=== PATIENT | male | born 1950 | race Caucasian/White ===

== ENCOUNTER → 2017-11-16 07:57 | Outpatient (CLI) | payer OTHER, MEDICARE, SELFPAY ==
--- NOTE | 2017-11-16 08:06 | CDU_ITS ---
Reason For Study: CAROTID STENOSIS Rt. Velocities/BP Lt. Velocities/BP Prox CCA 116.0/13.5 cm/sec. Prox CCA 138.0/18.1 cm/sec. Mid CCA 89.7/11.7 cm/sec. Mid CCA 113.0/15.2 cm/sec. Dist CCA 90.3/12.9 cm/sec. Dist CCA 93.2/18.8 cm/sec. Prox ICA 73.9/13.5 cm/sec. Prox ICA 134.0/27.5 cm/sec. Mid ICA 58.1/13.8 cm/sec. Mid ICA 94.4/24.2 cm/sec. Dist ICA 77.0/25.9 cm/sec. Dist ICA 83.0/21.1 cm/sec. Rt. ICA/CCA = 77.0/89.7=0.9. Lt. ICA/CCA = 134.0/113.0=1.2. Prox ECA 176.0/11.8 cm/sec. Prox ECA 164.0/12.6 cm/sec. Rt. Vert. 58.1/9.82 cm/sec. Lt. Vert. 65.6/18.9 cm/sec. Right Extracranial There is homogeneous, smooth atherosclerotic plaque noted in the right common carotid artery. There is homogeneous, smooth atherosclerotic plaque noted in the right internal carotid artery. There is intimal thickening but no significant atherosclerotic plaque noted in the right external carotid artery. Antegrade flow is noted in the right vertebral artery. Left Extracranial There is intimal thickening but no significant atherosclerotic plaque noted in the left common carotid artery. There is heterogeneous, irregular atherosclerotic plaque noted in the left internal carotid artery. There is intimal thickening but no significant atherosclerotic plaque noted in the left external carotid artery. Antegrade flow is noted in the left vertebral artery. There is heterogeneous, irregular atherosclerotic plaque noted in the left bulb. Procedure Carotid Duplex [id number]. The exam was diagnostic. Exam performed in department. Interpretation Summary Mild (<50%) stenosis right extracranial internal carotid. Moderate (50-69%) stenosis left extracranial internal carotid. Flow within the vertebral arteries is antegrade bilaterally. Ordering Physician: Vel Borjas Referring Physician: Chris Montez Performed By: Mayra Blount RDCS, RVT
== END ==
PROVIDERS: Family Provider Family Medicine; PCP Family Medicine; Visit Provider Surgery Vascular Surgery
DX: I65.23 Occlusion and stenosis of bilateral carotid arteries (principal); E11.59 Type 2 diabetes mellitus with other circulatory complications; I10 Essential (primary) hypertension; E78.00 Pure hypercholesterolemia, unspecified; I25.2 Old myocardial infarction; Z87.891 Personal history of nicotine dependence
CPT/HCPCS: 93880

== ENCOUNTER → 2019-10-30 08:00 | Outpatient (CLI) | payer OTHER, MEDICARE, SELFPAY ==
--- NOTE | 2019-10-30 08:03 | CDU_ITS ---
Reason For Study: Carotid stenosis Rt. Velocities/BP Lt. Velocities/BP Prox CCA 141.2/17 cm/sec. Prox CCA 119.3/18.8 cm/sec. Mid CCA 79/12.6 cm/sec. Mid CCA 98.6/13.9 cm/sec. Dist CCA 72.8/9 cm/sec. Dist CCA 101.1/18.8 cm/sec. Prox ICA 117/13.8 cm/sec. Prox ICA 149.9/27 cm/sec. Mid ICA 60.8/15.7 cm/sec. Mid ICA 80.2/24.9 cm/sec. Dist ICA 80.6/20.1 cm/sec. Dist ICA 79/24.9 cm/sec. Rt. ICA/CCA = 1.5. Lt. ICA/CCA = 1.5. Prox ECA 154.3 cm/sec. Prox ECA 200.2/6 cm/sec. Rt. Vert. 52/10.2 cm/sec. Lt. Vert. 55.3/11.3 cm/sec. Right Extracranial There is homogeneous, smooth atherosclerotic plaque noted in the right common carotid artery. There is homogeneous, smooth atherosclerotic plaque noted in the right internal carotid artery. There is intimal thickening but no significant atherosclerotic plaque noted in the right external carotid artery. Antegrade flow is noted in the right vertebral artery. Left Extracranial There is heterogeneous, irregular atherosclerotic plaque noted in the left common carotid artery. There is heterogeneous, irregular atherosclerotic plaque noted in the left internal carotid artery. There is heterogeneous, irregular atherosclerotic plaque noted in the left external carotid artery. Antegrade flow is noted in the left vertebral artery. Procedure Carotid Duplex [id number]. Exam performed in department. Interpretation Summary Mild (<50%) stenosis right extracranial internal carotid. Moderate (50-69%) stenosis left extracranial internal carotid. Flow within the vertebral arteries is antegrade bilaterally. Ordering Physician: Vel Borjas Referring Physician: Chris Montez Performed By: Lizbeth Long RVT
== END ==
PROVIDERS: PCP Family Medicine; Referring Provider Surgery Vascular Surgery; Visit Provider Surgery Vascular Surgery
DX: I65.23 Occlusion and stenosis of bilateral carotid arteries (principal)
CPT/HCPCS: 93880

== ENCOUNTER → 2022-01-12 | Outpatient (CLI) | payer OTHER, MEDICARE, SELFPAY ==
--- NOTE | 2022-01-12 10:47 | CDU_ITS ---
Reason For Study: CAROTID STENOSIS Rt. Velocities/BP Lt. Velocities/BP Prox CCA 107.3/16.0 cm/sec. Prox CCA 120.4/18.1 cm/sec. Mid CCA 81.6/13.8 cm/sec. Mid CCA 100.3/16.3 cm/sec. Dist CCA 82.9/13.8 cm/sec. Dist CCA 72.3/10.9 cm/sec. Prox ICA 95.7/12.2 cm/sec. Prox ICA 119.8/17.5 cm/sec. Mid ICA 56.4/19.5 cm/sec. Mid ICA 90.4/19.2 cm/sec. Dist ICA 73.6/22.0 cm/sec. Dist ICA 80.6/22.8 cm/sec. Rt. ICA/CCA = 95.7/81.6=1.2. Lt. ICA/CCA = 119.8/100.3=1.2. Prox ECA 128.9/0.0 cm/sec. Prox ECA 138.1/15.7 cm/sec. Rt. Vert. 47.8/8.5 cm/sec. Lt. Vert. 57.2/13.0 cm/sec. Right Extracranial There is homogeneous, smooth atherosclerotic plaque noted in the right common carotid artery. There is homogeneous, irregular atherosclerotic plaque noted in the right internal carotid artery. There is intimal thickening but no significant atherosclerotic plaque noted in the right external carotid artery. Antegrade flow is noted in the right vertebral artery. Left Extracranial There is homogeneous, smooth atherosclerotic plaque noted in the left common carotid artery. There is heterogeneous, irregular atherosclerotic plaque noted in the left internal carotid artery. There is heterogeneous, irregular atherosclerotic plaque noted in the left external carotid artery. Antegrade flow is noted in the left vertebral artery. Procedure Carotid Duplex [id number]. The exam was diagnostic. Exam performed in department. VL/Carotid Duplex Ultrasound Interpretation Summary Mild (<50%) stenosis right extracranial internal carotid. Mild (<50%) stenosis left extracranial internal carotid. Flow within the vertebral arteries is antegrade bilaterally. Ordering Physician: Vel Borjas Referring Physician: Reyes Dupree Performed By: Mayra Blount RDCS, RVT
== END | disposition home or self-care (01) ==
PROVIDERS: PCP Family Medicine; Referring Provider Surgery Vascular Surgery; Visit Provider Surgery Vascular Surgery
DX: I65.23 Occlusion and stenosis of bilateral carotid arteries (principal)
CPT/HCPCS: 93880

== ENCOUNTER → 2023-12-06 | Outpatient (CLI) | payer OTHER, MEDICARE, SELFPAY ==
--- NOTE | 2023-12-06 10:02 | ADUL_ITS ---
Reason For Study: PVD, aftercare Left Velocities Ext Iliac Artery, dist = 100.1 cm./sec. Common Femoral Artery, mid = 115.6 cm./sec. Supf. Femoral Artery, prox = 84.5 cm./sec. Supf. Femoral Artery, mid = 63.8 cm./sec. Supf. Femoral Artery, dist = 87.1 cm./sec. Profunda Femoral Artery = 81.9 cm./sec. Popliteal Artery, mid = 63.8 cm./sec. Ant.Tibial Artery, prox = 38.8 cm./sec. Ant Tibial Artery, mid = 23.0 cm./sec. Ant. Tibial Artery, distal = 15.4 cm./sec. Post. Tibial Artery, prox = 27.8 cm./sec. Post Tibial Artery, mid = 35.1 cm./sec. Post Tibial Artery, dist. = 44.9 cm./sec. Peroneal Artery, prox = 37.6 cm./sec. Unable to demonstrate flow mid and distal Peroneal A. Procedure The exam was diagnostic. /US Art Duplex Unilat Lower Ext Interpretation Summary The left lower extremity arterial duplex is essentially normal. Ordering Physician: Vel Borjas Referring Physician: Vel Borjas Performed By: Cesar Em RVT and Student
--- NOTE | 2023-12-06 10:03 | ART_ITS ---
Reason For Study: pvd, aftercare Procedure A bilateral lower extremity continuous wave Doppler with analog waveform analysis and ankle brachial indexes. Left Segmental Pressures Left brachial= 120mmHg. Left posterior tibial artery = 120mmHg. Left dorsalis pedis artery = 118mmHg. Left digit = 64 mmHg. The left dorsalis pedis waveforms are biphasic. The left posterior tibial artery waveforms are biphasic. Right Segmental Pressures Right brachial= 115mmHg. Right posterior tibial artery = 147mmHg. Right dorsalis pedis artery = 120mmHg. Right digit = 61 mmHg. The right posterior tibial artery waveforms are triphasic. The right dorsalis pedis waveforms are biphasic. Indices The right ankle brachial index by the dorsalis pedis is 1.0. The right ankle brachial index by the posterior tibial artery is 1.23. The right digital-brachial index is .51. The left ankle brachial index by the posterior tibial artery is 1.0. The left ankle brachial index by the dorsalis pedis is .98. The left digital-brachial index is .53. VL/Ankle Brachial Index Interpretation Summary Resting ankle-brachial indices appear bilaterally normal. Ordering Physician: Vel Borjas Performed By: Cesar Em RVT and Student
== END | disposition home or self-care (01) ==
LOC: CVS 09:55
PROVIDERS: PCP Family Medicine; Referring Provider Surgery Vascular Surgery; Visit Provider Surgery Vascular Surgery
DX: Z48.812 Encounter for surgical aftercare following surgery on the circulatory system (principal); I73.9 Peripheral vascular disease, unspecified; I10 Essential (primary) hypertension
CPT/HCPCS: 93922; 93926

== ENCOUNTER 2024-12-19 08:41 | Observation (INO) | payer MEDICARE, SELFPAY ==
--- NOTE | 2024-12-13 15:02 | PAT.ANESEVAL ---
Pre-Assessment Diagnosis/Proposed Procedure Planned Operative Procedure(s): (N/A) Cysto,Transurethal Resec Bladder,Olympus, LASER OF BLADDER Anesthesia History Anesthesia History - vascular neurologist: Anesthesia History - vascular neurologist Hx Hospitalization No 12/13/24 14:08 Any Problems With Anesthesia No 12/13/24 14:08 Cholinesterase deficiency No 12/13/24 14:08 You/Your Family Experience No 12/13/24 14:08 fever (hyperthermia) with Relationship Recent Exposure to Contagious Disease Does patient have nerve No 12/13/24 14:08 stimulator Patient instructed to have device shut off --Does patient have Pacemaker or ICD? When Was Last Pacemaker Check QUESTION #4 FULL TEXT: You/Your Family Experience fever (hyperthermia) with Anesthesia Last Oral Intake Last Oral intake: Last Oral Intake NPO since Meds taken in AM with sips of water? Meds patient instructed to take am of surgery PONV PONV - vascular neurologist: PONV - vascular neurologist Female No 12/13/24 14:08 HX of Motion Sickness No 12/13/24 14:08 HX of N/V After Surgery No 12/13/24 14:08 Non-Smoker Yes 12/13/24 14:08 Duration of Surgery greater Yes 12/13/24 14:08 than 60 minutes Number of Risk Factors 2 12/13/24 14:08 PONV Score Moderate Risk 12/13/24 14:08 Respiratory Assessment Respiratory Assessment - vascular neurologist: Respiratory Tract Infection Hx - vascular neurologist Hx Respiratory Tract Infection No 12/13/24 14:08 STOP Sleep Apnea STOP Sleep Apnea - vascular neurologist: STOP Sleep Apnea - vascular neurologist Hx Hypertension Yes: CONTROLLED WITH MED 12/13/24 14:08 Hx Sleep Apnea No 12/13/24 14:08 CPAP BIPAP Do you snore loudly (louder No 12/13/24 14:08 than talking or can be heard Do you often feel tired/ No 12/13/24 14:08 fatigued/ sleepy during daytime? Has anyone observed you stop No 12/13/24 14:08 breathing during sleep? STOP Results Negative 12/13/24 14:08 QUESTION #5 FULL TEXT : Do you snore loudly (louder than talking or can be heard through closed doors)? Tobacco Use History Tobacco Use History - vascular neurologist: Tobacco Use History - vascular neurologist Tobacco Use Smoking Status Former smoker 12/13/24 14:08 Hx Tobacco Use No 12/13/24 14:08 Years Smoking Packs Smoked per Day Smoking Cessation Date was No - quit smoking greater 12/13/24 14:08 within the last 15 years than 15 years ago Hx Smoking Cessation Date 06/27/84 12/13/24 14:08 Hx Smoking Cessation Counseling Hematologic Medial History Hematologic Hx - vascular neurologist: Hematologic Medical Hx - clinical documentation consultant Hx of Blood Transfusion No 12/13/24 14:08 Hx of Transfusion in last 3 No 12/13/24 14:08 Months Date of Last Transfusion (if within last 3 months) Ever experience any problems No 12/13/24 14:08 with transfusion(s)? Specify any problems Hx of Preganancy in last 3 N/A 12/13/24 14:08 Months Nurse Filling Out Transfusion NBUCHER 12/13/24 14:08 & Questions: Date: 12/13/24 12/13/24 14:08 Time: 14:10 12/13/24 14:08 Patient unable to answer at this time (ie. confused, unrespo /Reproduction History /Reproductive History - vascular neurologist: /Reproductive Hx- vascular neurologist Hx Now No 12/13/24 14:08 Gestational Age (in weeks): EDC: Hx Hx Para Hx Section SAB No 12/13/24 14:08 [facility], [facility] Medical History (Updated 12/13/24 @ 14:45 by Julia Godinez) History of atrial fibrillation History of heart attack Wears glasses History of steroid therapy Rheumatoid arthritis Arthritis Low iron Prostate disease BPH (benign prostatic hyperplasia) High cholesterol Former smoker History of CHF (congestive heart failure) History of CAD (coronary artery disease) History of edema History of echocardiogram History of stress test Hypertension Cardiology follow-up encounter Home Medications Medication Instructions Recorded Last Taken Type atorvastatin 40 mg tablet 40 mg PO DAILY 12/13/24 Unknown History clopidogrel 75 mg tablet 75 mg PO DAILY 12/13/24 Unknown History dutasteride 0.5 mg-tamsulosin ER 1 cap PO DAILY 12/13/24 Unknown History 0.4 mg capsule ext.release 24hr mphas empagliflozin 25 mg tablet 25 mg PO DAILY 12/13/24 Unknown History (Jardiance) glipizide 5 mg tablet 10 mg PO TID 12/13/24 Unknown History hydroxychloroquine 200 mg tablet 200 mg PO BID 12/13/24 Unknown History Held on 12/13/24. Instructions: DUE TO ANTIBIOTIC metoprolol succinate 25 mg 25 mg PO DAILY 12/13/24 Unknown History tablet,extended release 24 hr Allergy/AdvReac Type Severity Reaction Status Date / Time No Known Allergies Allergy Verified 12/13/24 14:04 Surgical History History of coronary artery stent placement (~2004) History of cardiac catheterization History of colonoscopy History of inguinal hernia repair History of carotid endarterectomy (~03/11/16) History of heart surgery Social History Smoking Status: Former smoker Audit: Pertinent Findings HISTORY of Pertinent Findings History of Pertinent Findings: 74-yo-M with PMHx of CAD s/p PCI to ramus in , s/p CABG x 1 (SVG-diag), mitral valve repair, grant maze procedure, KARLA clip in November 2019 with noted well closed KARLA on repeat OMER done in 02/2020, with noted well closed KARLA on repeat OMER done in 02/2020, HTN, HLD, DM, carotid stenosis s/p R ICA endartectomy in 2015, PAD s/p angioplasty of LLE, aortic root dilation (4.0 cm in 2024) Pertinent Findings EKG Perinent findings: EKG on unknown date: sinus rhythm, QTc 492 Echo (EF%) pertinent findings: Echo 09/2024: Mild LVH, systolic EF of 60-65%. Mild to moderate right atrial enlargement seen , aortic root enlarged at 4.0 cm, RVSP 27 Recommendation Anesthesia Recommendation Anesthesia recommendation: F/U recommended (Please obtain cardiac clearance from surgeon, otherwise patient should be optimized for anesthesia )
--- NOTE | 2024-12-17 07:41 | EKG12_ITS ---
Test Reason : PREOP Blood Pressure : */* mmHG Vent. Rate : 60 BPM Atrial Rate : 60 BPM P-R Int : 124 ms QRS Dur : 148 ms QT Int : 460 ms P-R-T Axes : 84 -83 15 degrees QTcB Int : 460 ms Normal sinus rhythm Right bundle branch block Left anterior fascicular block Bifascicular block Abnormal ECG Confirmed by ELAN HERNANDEZ, PUJA ([id number]), multimedia editor PREMA ZENDEJAS ([id number]) on 12/18/2024 6:48:17 AM Referred By: Fortunato David Confirmed By: PUJA ANSARI MD
[2024-12-17 08:54] LABS: Hematocrit 38.4 % (40-54); Hemoglobin 12.5 g/dL (13.0-16.5); Mean Corp Hgb Conc 32.6 g/dL (32-36); Mean Corpuscular Hgb 31.7 pg (27.0-32.0); Mean Corpuscular Volume 97.5 fL (80-94); Mean Platelet Vol. 9.4 fl (6.2-12.0); Platelet Count 219 K/mm3 (150-450); RBC Distribution Width CV 15.3 % (11.6-14.6); RBC Distribution Width SD 54.3 fl (35.1-43.9); Red Blood Count 3.94 M/mm3 (4.6-6.2); White Blood Count 8.2 K/mm3 (4.4-11.0)
[2024-12-17 09:24] LABS: Anion Gap 11 (5-15); BUN 24 mg/dL (4-19); BUN/Creat Ratio 19.3 RATIO (10-20); Calcium,Total 9.7 mg/dL (7.6-11.0); Carbon Dioxide 22.9 mmol/L (21.0-32.0); Chloride 104 mmol/L (98-108); Creatinine, Serum 1.25 mg/dL (0.70-1.20); EST Glomerular Filtration Rate 60 (>60); Glucose 221 mg/dL (70-99); Potassium 4.9 mmol/L (3.3-5.1); Sodium Level 138 mmol/L (133-145)
[2024-12-17 11:18] LABS: Hemoglobin A1c 9.7 % (<=5.6)
--- NOTE | 2024-12-18 08:42 | PAT.ANE_ITS ---
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 When Was Last Pacemaker Check QUESTION #4 FULL TEXT: You/Your Family Experience fever (hyperthermia) with Anesthesia Last Oral Intake Last Oral intake: Last Oral Intake NPO since Meds taken in AM with sips of water? Meds patient instructed to take am of surgery PONV PONV - asbestos brake lining finisher helper: PONV - asbestos brake lining finisher helper Female No 12/13/24 14:08 HX of Motion Sickness No 12/13/24 14:08 HX of N/V After Surgery No 12/13/24 14:08 Non-Smoker Yes 12/13/24 14:08 Duration of Surgery greater Yes 12/13/24 14:08 than 60 minutes Number of Risk Factors 2 12/13/24 14:08 PONV Score Moderate Risk 12/13/24 14:08 Respiratory Assessment Respiratory Assessment - asbestos brake lining finisher helper: Respiratory Tract Infection Hx - asbestos brake lining finisher helper Hx Respiratory Tract Infection No 12/13/24 14:08 STOP Sleep Apnea STOP Sleep Apnea - asbestos brake lining finisher helper: STOP Sleep Apnea - asbestos brake lining finisher helper Hx Hypertension Yes: CONTROLLED WITH MED 12/13/24 14:08 Hx Sleep Apnea No 12/13/24 14:08 CPAP BIPAP Do you snore loudly (louder No 12/13/24 14:08 than talking or can be heard Do you often feel tired/ No 12/13/24 14:08 fatigued/ sleepy during daytime? Has anyone observed you stop No 12/13/24 14:08 breathing during sleep? STOP Results Negative 12/13/24 14:08 QUESTION #5 FULL TEXT : Do you snore loudly (louder than talking or can be heard through closed doors)? Tobacco Use History Tobacco Use History - asbestos brake lining finisher helper: Tobacco Use History - asbestos brake lining finisher helper Tobacco Use Smoking Status Former smoker 12/13/24 14:08 Hx Tobacco Use No 12/13/24 14:08 Years Smoking Packs Smoked per Day Smoking Cessation Date was No - quit smoking greater 12/13/24 14:08 within the last 15 years than 15 years ago Hx Smoking Cessation Date 06/27/84 12/13/24 14:08 Hx Smoking Cessation Counseling Hematologic Medial History Hematologic Hx - asbestos brake lining finisher helper: Hematologic Medical Hx - keno terminal operator Hx of Blood Transfusion No 12/13/24 14:08 Hx of Transfusion in last 3 No 12/13/24 14:08 Months Date of Last Transfusion (if within last 3 months) Ever experience any problems No 12/13/24 14:08 with transfusion(s)? Specify any problems Hx of Preganancy in last 3 N/A 12/13/24 14:08 Months Nurse Filling Out Transfusion NBUCHER 12/13/24 14:08 & Questions: Date: 12/13/24 12/13/24 14:08 Time: 14:10 12/13/24 14:08 Patient unable to answer at this time (ie. confused, unrespo /Reproduction History /Reproductive History - asbestos brake lining finisher helper: /Reproductive Hx- asbestos brake lining finisher helper Hx Now No 12/13/24 14:08 Gestational Age (in weeks): EDC: Hx Hx Para Hx Section SAB No 12/13/24 14:08 [facility] Medical History (Updated 12/13/24 @ 14:45 by Julia Godinez) History of atrial fibrillation History of heart attack Wears glasses History of steroid therapy Rheumatoid arthritis Arthritis Low iron Prostate disease BPH (benign prostatic hyperplasia) High cholesterol Former smoker History of CHF (congestive heart failure) History of CAD (coronary artery disease) History of edema History of echocardiogram History of stress test Hypertension Cardiology follow-up encounter Home Medications Medication Instructions Recorded Last Taken Type atorvastatin 40 mg tablet 40 mg PO DAILY 12/13/24 Unkn own History clopidogrel 75 mg tablet 75 mg PO DAILY 12/13/24 Unkn own History dutasteride 0.5 mg-tamsulosin ER 1 cap PO DAILY Unknown History 0.4 mg capsule ext.release 24hr mphas empagliflozin 25 mg tablet 25 mg PO DAILY 12/13/24 Unk nown History (Jardiance) glipizide 5 mg tablet 10 mg PO TID 12/13/24 Unknow n History hydroxychloroquine 200 mg tablet 200 mg PO BID 5 Unknown History Held on 12/13/24. Instructions: DUE TO ANTIBIOTIC metoprolol succinate 25 mg 25 mg PO DAILY 12/13/24 Unk nown History tablet,extended release 24 hr Allergy/AdvReac Type Severity Reaction Status Date / Time No Known Allergies Allergy Verified 12/13/24 14:04 Surgical History History of coronary artery stent placement (~2004) History of cardiac catheterization History of colonoscopy History of inguinal hernia repair History of carotid endarterectomy (~03/11/16) History of heart surgery Social History Smoking Status: Former smoker Audit: Pertinent Findings HISTORY of Pertinent Findings History of Pertinent Findings: EKG Pertinent Findings EKG Perinent findings EKG on unknown date: sinus 12/13/24 15:10 rhythm, QTc 492 Echo Pertinent Findings Echo (EF%) pertinent findings Echo 09/2024: Mild LVH, 12/13/24 15:10 systolic EF of 60-65%. Mild to moderate right atrial enlargement seen , aortic root enlarged at 4.0 cm, RVSP 27 Pertinent Findings Consult pertinent findings: November 08, 2024. Dr. Dillard. 1. Coronary artery disease–status post PCI of ramus in 2003. CABG x 1 in 2019. Most recent stress test is without ischemia. Continue Plavix and statin. Patient's left neck and arm pain is most likely musculoskeletal. 2. Atrial fibrillation-occurred postop. No recurrence since. 3. Status post mitral valve replacement-trivial MR. Mild stenosis. 4. Aortic root dilation–4 cm in 2024. Unchanged since 2023. 5. Hypertension–controlled. 6. Status post carotid endarterectomy-continue Plavix and statin. Repeat Doppler next visit. Recommendation Anesthesia Recommendation Anesthesia recommendation: OPTIMIZED for anesthesia
--- NOTE | 2024-12-18 08:54 | PAT.ANE_ITS ---
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 When Was Last Pacemaker Check QUESTION #4 FULL TEXT: You/Your Family Experience fever (hyperthermia) with Anesthesia Last Oral Intake Last Oral intake: Last Oral Intake NPO since Meds taken in AM with sips of water? 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 Female No 12/13/24 14:08 HX of Motion Sickness No 12/13/24 14:08 HX of N/V After Surgery No 12/13/24 14:08 Non-Smoker Yes 12/13/24 14:08 Duration of Surgery greater Yes 12/13/24 14:08 than 60 minutes Number of Risk Factors 2 12/13/24 14:08 PONV Score Moderate Risk 12/13/24 14:08 Respiratory Assessment Respiratory Assessment - wood and wood products labourer: Respiratory Tract Infection Hx - wood and wood products labourer Hx Respiratory Tract Infection No 12/13/24 14:08 STOP Sleep Apnea STOP Sleep Apnea - wood and wood products labourer: STOP Sleep Apnea - wood and wood products labourer Hx Hypertension Yes: CONTROLLED WITH MED 12/13/24 14:08 Hx Sleep Apnea No 12/13/24 14:08 CPAP BIPAP Do you snore loudly (louder No 12/13/24 14:08 than talking or can be heard Do you often feel tired/ No 12/13/24 14:08 fatigued/ sleepy during daytime? Has anyone observed you stop No 12/13/24 14:08 breathing during sleep? STOP Results Negative 12/13/24 14:08 QUESTION #5 FULL TEXT : Do you snore loudly (louder than talking or can be heard through closed doors)? 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 Specify any problems Hx of Preganancy in last 3 N/A 12/13/24 14:08 Months Nurse Filling Out Transfusion NBUCHER 12/13/24 14:08 & Questions: Date: 12/13/24 12/13/24 14:08 Time: 14:10 12/13/24 14:08 Patient unable to answer at this time (ie. confused, unrespo /Reproduction History /Reproductive History - wood and wood products labourer: /Reproductive Hx- wood and wood products labourer Hx Now No 12/13/24 14:08 Gestational Age (in weeks): EDC: Hx Hx Para Hx Section SAB No 12/13/24 14:08 [facility] Medical History (Updated 12/13/24 @ 14:45 by Julia Godinez) History of atrial fibrillation History of heart attack Wears glasses History of steroid therapy Rheumatoid arthritis Arthritis Low iron Prostate disease BPH (benign prostatic hyperplasia) High cholesterol Former smoker History of CHF (congestive heart failure) History of CAD (coronary artery disease) History of edema History of echocardiogram History of stress test Hypertension Cardiology follow-up encounter Home Medications Medication Instructions Recorded Last Taken Type atorvastatin 40 mg tablet 40 mg PO DAILY 12/13/24 Unkn own History clopidogrel 75 mg tablet 75 mg PO DAILY 12/13/24 Unkn own History dutasteride 0.5 mg-tamsulosin ER 1 cap PO DAILY Unknown History 0.4 mg capsule ext.release 24hr mphas empagliflozin 25 mg tablet 25 mg PO DAILY 12/13/24 Unk nown History (Jardiance) glipizide 5 mg tablet 10 mg PO TID 12/13/24 Unknow n History hydroxychloroquine 200 mg tablet 200 mg PO BID 5 Unknown History Held on 12/13/24. Instructions: DUE TO ANTIBIOTIC metoprolol succinate 25 mg 25 mg PO DAILY 12/13/24 Unk nown History tablet,extended release 24 hr Allergy/AdvReac Type Severity Reaction Status Date / Time No Known Allergies Allergy Verified 12/13/24 14:04 Surgical History History of coronary artery stent placement (~2004) History of cardiac catheterization History of colonoscopy History of inguinal hernia repair History of carotid endarterectomy (~03/11/16) History of heart surgery Social History Smoking Status: Former smoker Audit: Pertinent Findings HISTORY of Pertinent Findings History of Pertinent Findings: EKG Pertinent Findings EKG Perinent findings EKG on unknown date: sinus 12/13/24 15:10 rhythm, QTc 492 Echo Pertinent Findings Echo (EF%) pertinent findings Echo 09/2024: Mild LVH, 12/13/24 15:10 systolic EF of 60-65%. Mild to moderate right atrial enlargement seen , aortic root enlarged at 4.0 cm, RVSP 27 Consult Pertinent Findings Consult pertinent findings November 08, 2024. Dr. Dillard. 12/18/24 08:49 1. Coronary artery disease– status post PCI of ramus in 2003. CABG x 1 in 2019. Most recent stress test is without ischemia. Continue Plavix and statin. Patient' s left neck and arm pain is most likely musculoskeletal. 2. Atrial fibrillation- occurred postop. No recurrence since. 3. Status post mitral valve replacement-trivial MR. Mild stenosis. 4. Aortic root dilation–4 cm in 2024. Unchanged since 2023. 5. Hypertension–controlled. 6. Status post carotid endarterectomy-continue Plavix and statin. Repeat Doppler next visit. Pertinent Findings Additional pertinent findings: Hemoglobin A1c is 9.7. Recommendation Anesthesia Recommendation Anesthesia recommendation: OPTIMIZED for anesthesia (Send note to Dr. Montes you informing him that the patient has a hemoglobin A1c of 9.7. Elevated A1c's are indicative of poor wound healing and increased likelihood of infection.)
[2024-12-19] VITALS (15 sets, daily range): BP systolic 102–137; BP diastolic 55–79; PULSE 58–69; RESP 16–18; TEMP 35.8–36.8; O2SAT 95–100; BMI 22.7; BMI 22.9
--- NOTE | 2024-12-19 07:53 | PCM.PRE.AN2 ---
ASA Classification* ASA Classification ASA Classification: 3 (A1C 9.7, hx CABG, hx CAD s/p PCI, mitral valve repair, HTN, HLD, T2DM, carotid stenosis s/p R ICA endartectomy, PAD, ) Assessment & Plan Anesthesia* Anesthesia Assessment Anesthesia Assessment: Discussed sedation and/or anesthesia options, risks, benefits, and alternatives with patient/parents/legal guardian/POA. Questions invited. The patient/parents/legal guardian/POA seems to understand and agrees to proceed with anesthesia plan. Reviewed the physical assessment, medical history, allergy history and patient home medications list prior to surgery/procedure/anesthetic and documented any changes. Performed airway and anesthesia risk assessments. Anesthesia Type Anesthesia Type: General History Source History Obtained from:: Patient and Chart Anesthesia Focused Assessment* Temperature: 98.3 F Pulse Rate: 64 Blood Pressure: 117/59 Respiratory Rate: 16 Pulse Ox: 100 Oxygen Delivery Method: Room Air Airway Assessment Mouth opens: >3 cm Mallampati Score: III Teeth Condition: Missing Neck Range of motion (ROM): Full ROM Labs Anesthesia Preop lab: CBC WBC 8.2 K/mm3 (4.4-11.0) 12/17/24 08:12 12/17/24 RBC 3.94 M/mm3 (4.6-6.2) L 12/17/24 08:12 12/17/24 Hgb 12.5 g/dL (13.0-16.5) L 12/17/24 08:12 12/17/24 Hct 38.4 % (40-54) L 12/17/24 08:12 12/17/24 Plt Count 219 K/mm3 (150-450) 12/17/24 08:12 12/17/24 CHEMISTRY Potassium 4.9 mmol/L (3.3-5.1) 12/17/24 08:12 12/17/24 Sodium 138 mmol/L (133-145) 12/17/24 08:12 12/17/24 BUN 24 mg/dL (4-19) H 12/17/24 08:12 12/17/24 Creatinine 1.25 mg/dL (0.70-1.20) H 12/17/24 08:12 12/17/24 Glucose 221 mg/dL (70-99) H 12/17/24 08:12 12/17/24 COAG Pre-Assessment Diagnosis/Proposed Procedure Planned Operative Procedure(s): (N/A) Cysto,Transurethal Resec Bladder,Olympus, LASER OF BLADDER Anesthesia History Anesthesia History - doctor of chiropractic: Anesthesia History - doctor of chiropractic Hx Hospitalization No 12/13/24 14:08 Any Problems With Anesthesia No 12/13/24 14:08 Cholinesterase deficiency No 12/13/24 14:08 You/Your Family Experience No 12/13/24 14:08 fever (hyperthermia) with Relationship Recent Exposure to Contagious No 12/19/24 07:12 Disease Does patient have nerve No 12/13/24 14:08 stimulator Patient instructed to have device shut off --Does patient have Pacemaker No 12/19/24 07:12 or ICD? When Was Last Pacemaker Check QUESTION #4 FULL TEXT: You/Your Family Experience fever (hyperthermia) with Anesthesia Last Oral Intake Last Oral intake: Last Oral Intake NPO since 19:00 12/19/24 07:12 Meds taken in AM with sips of Yes 12/19/24 07:12 water? Meds patient instructed to metoprolol @0500 12/19/24 07:12 take am of surgery PONV PONV - doctor of chiropractic: PONV - doctor of chiropractic Female No 12/13/24 14:08 HX of Motion Sickness No 12/13/24 14:08 HX of N/V After Surgery No 12/13/24 14:08 Non-Smoker Yes 12/13/24 14:08 Duration of Surgery greater Yes 12/13/24 14:08 than 60 minutes Number of Risk Factors 2 12/13/24 14:08 PONV Score Moderate Risk 12/13/24 14:08 Height & Weight Height & Weight: Anesthesia: Height & Weight Height 6 ft 12/19/24 07:12 Weight: 76 kg 12/19/24 07:12 Body Mass Index (BMI) 22.7 12/19/24 07:12 Respiratory Assessment Respiratory Assessment - doctor of chiropractic: Respiratory Tract Infection Hx - doctor of chiropractic Hx Respiratory Tract Infection No 12/13/24 14:08 STOP Sleep Apnea STOP Sleep Apnea - doctor of chiropractic: STOP Sleep Apnea - doctor of chiropractic Hx Hypertension Yes: CONTROLLED WITH MED 12/13/24 14:08 Hx Sleep Apnea No 12/13/24 14:08 CPAP BIPAP Do you snore loudly (louder No 12/13/24 14:08 than talking or can be heard Do you often feel tired/ No 12/13/24 14:08 fatigued/ sleepy during daytime? Has anyone observed you stop No 12/13/24 14:08 breathing during sleep? STOP Results Negative 12/13/24 14:08 QUESTION #5 FULL TEXT : Do you snore loudly (louder than talking or can be heard through closed doors)? 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 Specify any problems Hx of Preganancy in last 3 N/A 12/13/24 14:08 Months Nurse Filling Out Transfusion NBUCHER 12/13/24 14:08 & Questions: Date: 12/13/24 12/13/24 14:08 Time: 14:10 12/13/24 14:08 Patient unable to answer at this time (ie. confused, unrespo /Reproduction History /Reproductive History - doctor of chiropractic: /Reproductive Hx- doctor of chiropractic Hx Now No 12/13/24 14:08 Gestational Age (in weeks): EDC: Hx Hx Para Hx Section SAB No 12/13/24 14:08 Active Medications Active Medications: Current Medications Generic Name Dose Route Start Last Admin Trade Name Freq PRN Reason Stop Dose Admin Cefazolin Sodium 2 gm/ Sodium 110 mls @ 200 mls/hr 12/19/24 09:00 Chloride IV 12/19/24 09:32 INTRAOP ONE Lactated Ringer's 1,000 mls @ 15 mls/hr 12/19/24 07:00 IV .Q48H HECTOR PFSH Medical History (Updated 12/13/24 @ 14:45 by Julia Godinez) History of atrial fibrillation History of heart attack Wears glasses History of steroid therapy Rheumatoid arthritis Arthritis Low iron Prostate disease BPH (benign prostatic hyperplasia) High cholesterol Former smoker History of CHF (congestive heart failure) History of CAD (coronary artery disease) History of edema History of echocardiogram History of stress test Hypertension Cardiology follow-up encounter Home Medications Medication Instructions Recorded Last Taken Type atorvastatin 40 mg tablet 40 mg PO DAILY 12/13/24 Unknown History clopidogrel 75 mg tablet 75 mg PO DAILY 12/13/24 12/12/24 History dutasteride 0.5 mg-tamsulosin ER 1 cap PO DAILY 12/13/24 Unknown History 0.4 mg capsule ext.release 24hr mphas empagliflozin 25 mg tablet 25 mg PO DAILY 12/13/24 Unknown History (Jardiance) glipizide 5 mg tablet 10 mg PO TID 12/13/24 Unknown History hydroxychloroquine 200 mg tablet 200 mg PO BID 12/13/24 Unknown History Held on 12/13/24. Instructions: DUE TO ANTIBIOTIC metoprolol succinate 25 mg 25 mg PO DAILY 12/13/24 12/19/24 05:00 History tablet,extended release 24 hr Allergy/AdvReac Type Severity Reaction Status Date / Time No Known Allergies Allergy Verified 12/13/24 14:04 Surgical History History of coronary artery stent placement (~2004) History of cardiac catheterization History of colonoscopy History of inguinal hernia repair History of carotid endarterectomy (~03/11/16) History of heart surgery Social History Smoking Status: Former smoker Review of Systems (Anesthesia) ROS Narrative System reviewed and no additional complaints, except as documented. Physical Exam Const alert, oriented x3 and average body habitus Resp normal respiratory effort, normal air movement and clear to auscultation bilaterally Cardio regular rate, regular rhythm and no murmurs
[2024-12-19] MEDS: Lactated Ringers 1,000 ML 15 ML IV (07:59)
[2024-12-19 08:07] LABS: Bedside Glucose 206 mg/dL (74-106)
[2024-12-19] MEDS: Cefazolin 2 GM in 0.9% Normal Saline (100mL Bag) 100 ML IV (08:55)
--- NOTE | 2024-12-19 09:00 | PROS_PTH ---
PATIENT: DAVID BUCK LOC: [facility] U#:[id number] AGE/SX: 74/M ROOM: [facility] RE12/19/[address]: Dr. Fortunato David MD : 1950 BED: 1 DIS: 12/20/2024 SPEC #: [id number] RECD: 12/19/24 11:05 STATUS: BETTYE HUSAIN #: [id number] KATARZYNA: 12/19/24 09:[address]: Fortunato David DEPT: SURGICAL PATHOLOGY RECD BY: Manuel Muñoz ENTERED: 12/19/24 13:24 SP TYPE: TURP OTHR DR: MD Dr. Reyes Cadena MD Tissues: A - Prostate, NOS Procedures: Surgery Specimen Level IV HEADER OPERATION: Cysto, transurethral resection bladder, laser of bladder PRE-OP DIAGNOSIS: Benign prostatic hyperplasia, bladder stones TISSUE SUBMITTED: A- Prostate chips MICROSCOPIC DIAGNOSIS A. Prostate, "BPH, bladder stones", transurethral resection: - Benign prostate tissue with patchy granulomatous inflammation and patchy acute inflammation. - Urethritis cystica. MICROSCOPIC DESCRIPTION Slides are reviewed. GROSS DESCRIPTION A. Received in formalin labeled with the patient's name and date of . Designated as " prostate chips" is an 18 g, 6.9 x 6.7 x 0.9 cm aggregate of [place] irregular focally cauterized, rubbery tissue fragments and innumerable, orange-brown stone fragments. Approximately 95% of the tissue fragments are submitted in 9 cassettes. MN 12/19/2024 CPT:19618
--- NOTE | 2024-12-19 10:22 | DCINST_ITS ---
Discharge Instructions Diet Discharge Diet: No restrictions DC O2, CPAP, BIPAP needs Home O2 Discharge instructions: No Dressing / Incision Discharge Activity: Return to Normal Activity and May Not Drive (while taking narcotic pain medications.) Dressing / Incision Call your doctor if you observe: Fever of 101 or Higher Follow Up Care Please Follow Up With: Fortunato David MD When: Call [phone] for an appointment Test Results: Test results from this visit will be discussed in further detail at your follow- up appointment, if applicable. Discharge Plan Admission Primary Reason for Your Visit: TURP Attending Provider: Fortunato David Primary Care Provider: Reyes Dupree Consulting Providers: Holger Sams Instructions Print Language: German Discharge Orders/Prescriptions Prescriptions: New ciprofloxacin HCl [Cipro] 500 mg tablet 500 mg PO BID Qty: 10 0RF Continued atorvastatin 40 mg tablet 40 mg PO DAILY metoprolol succinate 25 mg tablet extended release 24 hr 25 mg PO DAILY hydroxychloroquine 200 mg tablet 200 mg PO BID glipizide 5 mg tablet 10 mg PO TID Jardiance 25 mg tablet 25 mg PO DAILY Held clopidogrel 75 mg tablet 75 mg PO DAILY Hold Instructions: Resume on 01/02/25. Discontinued dutasteride-tamsulosin 0.5-0.4 mg capsule, ER multiphase 24 hr 1 cap PO DAILY Other Ambulatory Orders: 12 Lead EKG (Routine) Timeframe: 20241217 Location: None Selected Ordered By: Dr. Holger Sams Referrals / Follow Up: Fortunato David MD [Med Staff - Active Staff] - Reyes Dupree MD [Primary Care Provider] - Disposition Disposition (needs filled in before D/C Order can be placed): Home, Self Care
--- NOTE | 2024-12-19 10:23 | OP.PCM_ITS ---
Operative Report (Standard) Operative Information Date of Procedure: 12/19/24 Pre-Operative Diagnosis: BPH with obstruction and large bladder stones greater than 2.5 cm in size Post-Operative Diagnosis: The same Surgery/Procedure Performed: Cystoscopy and cystolitholapaxy and laser of bladder stones and removal of large bladder stones, transurethral resection of the prostate technical administrator: No Type of Anesthesia: General RN Documented Start/Stop Times: Operation Date: 12/19/24 09:00 Case Time Into Pre-Op 12/19/24 06:49 Out of Pre-Op 12/19/24 08:40 Anesthesia Start 12/19/24 08:43 Into Room 12/19/24 08:43 Procedure Start 12/19/24 09:02 Procedure Start Time: 09:02 Procedure Stop Time: 10:23 Select all DRAINS/GRAFTS/IMPLANTS that apply: Drains Drain details: 22 [place] three-way catheter Estimated Blood Loss: 20 cc Specimen collected: Yes Description of specimen(s) removed: Prostate chips bladder stones Description of surgery: Patient was taken back to the operating room after smooth induction of anesthesia he was placed in dorsolithotomy position. Penis and testicles were prepped and draped in usual fashion went in the bladder with a 26 [place] continuous-flow Olympus bipolar resectoscope I had to dilate the meatus in order to put the scope in. Once I got inside the bladder we put the laser bridge through with continuous irrigation I then put a 940 µm laser fiber thulium settings were 14 Hz and 10 J with 54 W I lasered these 2 large stones into tiny little pieces and all the pieces were then Ellik doubt out of the bladder. After successfully lasering both the large stones then I switched over to the medium size loop resectoscope and started resecting the prostate I resected the median lobe of the prostate and then resected back to verumontanum I resected all the right lobe of the prostate resect the left lobe of prostate I then resected the anterior tissue very carefully resected down to the very sphincter was intact bruise intact and then used the button to smooth out the resection that a flow test had an open flow cauterized the resection site extensively to obtain hemostasis and then placed a 22 Citizen [place] catheter in the bladder with continuous bladder irrigation patient anesthetic reversed taken back to the PACU in good condition we will keep him overnight for continuous irrigation Surgical Findings: Very large obstructive prostate and very large bladder stones greater than 2.5 cm Complications Complications: No Admit VTE Documentation VTE Present on Admission: No VTE Mechan Device Prophylaxis: SCD's VTE Pharm Prophylaxis ordered?: No
--- NOTE | 2024-12-19 11:01 | SUR.PHASEI ---
While SHOVEL HANDLE ASSEMBLER was giving report, it was learned that patient has shingles. scabbed area noted to left abraham and coccyx. Patient rolled and angry red rash noted to posterior right thigh, one large spot with scab but multiple areas with raw looking reddened spots that are not scabbed over at this time. Once assessment complete, called infection prevention and decision made to place in airborne isolation.
[2024-12-19] MEDS: 0.9% Normal Saline (1000mL) 1,000 ML 125 ML IV ×2 (11:07→15:58)
--- NOTE | 2024-12-19 11:56 | PCM.POST.ANE ---
Anesthesia: Postop Eval I Current Vital Signs Temperature: 97 F Pulse Rate: 66 Blood Pressure: 124/63 Respiratory Rate: 18 Pulse Ox: 98 Oxygen Delivery Method: Room Air Assessment Airway patent: Yes Spontaneous unlabored respirations: Yes Mental status: Awake nausea: No Vomiting: No Anesthesia Complication: No Fluid Hydration Crystalloid volume administer (ml): 1,000 Total IV fluid infused: 1,000 Progress Note Anesthesia document: Postop Eval 1 completed: Yes
[2024-12-19 14:02] LABS: Bedside Glucose 168 mg/dL (74-106)
--- NOTE | 2024-12-19 14:49 | POSTOPAN2_ITS ---
Anesthesia Postop Eval I Sum Postop Eval Completion status Anesthesia document: Postop Eval 1 completed: Yes Anesthesia Postop Eval I Summary Anesthesia Postop Eval I Summary: Anesthesia Postop Eval I: Assessment Summary Airway patent Yes 12/19/24 11:56 HUMANITIES INSTRUCTOR.ACAR Spontaneous unlabored Yes 12/19/24 11:56 HUMANITIES INSTRUCTOR.ACAR respirations Mental status Awake 12/19/24 11:56 HUMANITIES INSTRUCTOR.ACAR nausea No 12/19/24 11:56 HUMANITIES INSTRUCTOR.ACAR Vomiting No 12/19/24 11:56 HUMANITIES INSTRUCTOR.ACAR Anesthesia Postop Eval I: Fluid Summary Crystalloid volume administer 1,000 12/19/24 11:56 HUMANITIES INSTRUCTOR.ACAR (ml) Colloids volume administered ( ml) Blood Product volume administered (ml) Total IV fluid infused 1,000 12/19/24 11:56 HUMANITIES INSTRUCTOR.ACAR Anesthesia Postop Eval I: Summary Notes Anesthesia Complication No 12/19/24 11:56 HUMANITIES INSTRUCTOR.ACAR Anesthesia Complication Comment: Post-operative progress note Anesthesia: Postop Eval II Evaluation Mental status: Awake Pain Level: 0 nausea: No Vomiting: No Complications Anesthesia Complication: No
--- NOTE | 2024-12-19 14:49 | PCM.POSTANE2 ---
Anesthesia Postop Eval I Sum Postop Eval Completion status Anesthesia document: Postop Eval 1 completed: Yes Anesthesia Postop Eval I Summary Anesthesia Postop Eval I Summary: Anesthesia Postop Eval I: Assessment Summary Airway patent Yes 12/19/24 11:56 ANESTHESIA ATTENDING.ACAR Spontaneous unlabored Yes 12/19/24 11:56 ANESTHESIA ATTENDING.ACAR respirations Mental status Awake 12/19/24 11:56 ANESTHESIA ATTENDING.ACAR nausea No 12/19/24 11:56 ANESTHESIA ATTENDING.ACAR Vomiting No 12/19/24 11:56 ANESTHESIA ATTENDING.ACAR Anesthesia Postop Eval I: Fluid Summary Crystalloid volume administer 1,000 12/19/24 11:56 ANESTHESIA ATTENDING.ACAR (ml) Colloids volume administered ( ml) Blood Product volume administered (ml) Total IV fluid infused 1,000 12/19/24 11:56 ANESTHESIA ATTENDING.ACAR Anesthesia Postop Eval I: Summary Notes Anesthesia Complication No 12/19/24 11:56 ANESTHESIA ATTENDING.ACAR Anesthesia Complication Comment: Post-operative progress note Anesthesia: Postop Eval II Evaluation Mental status: Awake Pain Level: 0 nausea: No Vomiting: No Complications Anesthesia Complication: No
[2024-12-19] MEDS: glipiZIDE 10 MG Tablet PO (15:58)
[2024-12-19] MEDS: Acyclovir 800 MG Tablet PO ×2 (15:58→23:50)
[2024-12-19] MEDS: Cefazolin 1 GM/50 ML BAG IV (15:58)
[2024-12-19] MEDS: Hydroxychloroquine 200 MG Tablet PO (15:58)
[2024-12-19] MEDS: Docusate Sodium 100 MG Capsule 200 MG PO (22:02)
[2024-12-19] MEDS: Atorvastatin Calcium 40 MG Tablet PO (22:06)
[2024-12-20] MEDS: 0.9% Normal Saline (1000mL) 1,000 ML 125 ML IV (00:23)
[2024-12-20] MEDS: Cefazolin 1 GM/50 ML BAG IV (00:24)
[2024-12-20 04:00] VITALS: BP 103/58; PULSE 63; RESP 16; TEMP 36.8; O2SAT 97
[2024-12-20] MEDS: Acyclovir 800 MG Tablet PO ×2 (06:34→12:32)
[2024-12-20 07:18] LABS: Bedside Glucose 150 mg/dL (74-106)
--- NOTE | 2024-12-20 07:43 | PCM.PN.GU ---
Subjective Subjective s/p turp d/c womack for a voiding trial cont. precaution for shingles Objective Data Objective Data Vital Signs: Vital Signs Temp Pulse Resp BP Pulse Ox O2 Del Method 98.2 F 63 16 103/58 L 97 Room Air 12/20/24 04:00 12/20/24 04:00 12/20/24 04:00 12/20/24 04:00 12/20/24 04:00 12/20/24 04:00 Oxygen Delivery Method Room Air Weight: 76.657 kg Body Mass Index (BMI) 22.9 Intake & Output: Intake and Output for Last 24 Hours 12/18/24 12/19/24 12/20/24 23:59 23:59 23:59 Intake Total 2896.25 / 3376.25 830 / 830 Output Total 3505 / 4355 1700 / 1700 Balance -608.75 / -978.75 -870 / -870 Lab / Micro Data 12/17/24 08:12 12/17/24 08:12 Labs: Laboratory Results - last 24 hr 12/19/24 07:34: POC Glucose 206 H 12/19/24 13:41: POC Glucose 168 H 12/20/24 07:00: POC Glucose 150 H
[2024-12-20 08:27] VITALS: PULSE 77
[2024-12-20] MEDS: glipiZIDE 10 MG Tablet PO ×2 (08:27→12:32)
[2024-12-20] MEDS: Hydroxychloroquine 200 MG Tablet PO (08:27)
[2024-12-20] MEDS: Docusate Sodium 100 MG Capsule 200 MG PO (08:27)
[2024-12-20] MEDS: Metoprolol(XL)Succ 25 MG Tablet PO (08:27)
[2024-12-20] MEDS: Empagliflozin 25 MG Tablet PO (08:28)
[2024-12-20 08:41] VITALS: BP 114/59; PULSE 77; RESP 16; TEMP 36.7; O2SAT 95
--- NOTE | 2024-12-20 14:27 | CASEMGMT ---
Patient has order for discharge. RN CM in to discuss needs at discharge. Patient denies needs or help at discharge. Patient had no further questions or concerns.
[2024-12-20 15:19] VITALS: BP 121/60; PULSE 78; RESP 16; TEMP 36.7; O2SAT 96
--- NOTE | 2024-12-21 14:31 | PCM.DC.SUM ---
Providers Date of Admission: 12/19/24 Date of Discharge: 12/20/24 Primary Care Physician: Dr. Reyes Dupree MD Reason For Visit: Cysto,Transurethal Resec Bladder,[employer], LASER BL Medications at Discharge Home Medications atorvastatin 40 mg tablet 40 mg PO DAILY cholesterol 12/13/24 clopidogrel 75 mg tablet 75 mg PO DAILY anti platelet 12/13/24 Held on 12/19/24. Instructions: Resume on 01/02/25. empagliflozin 25 mg tablet (Jardiance) 25 mg PO DAILY diabetes 12/13/24 glipizide 5 mg tablet 10 mg PO TID diabetes 12/13/24 hydroxychloroquine 200 mg tablet 200 mg PO BID 12/13/24 metoprolol succinate 25 mg tablet,extended release 24 hr 25 mg PO DAILY blood pressure 12/13/24 ciprofloxacin HCl 500 mg tablet (Cipro) 500 mg PO BID #10 tabs 12/19/24 famciclovir 500 mg tablet 500 mg PO Q12H infection 12/19/24 Hospital Course Operations TURP Weight / BMI Weight Weight: 76.657 kg Body Mass Index (BMI) 22.9 ABG / Lab / Microbiology Data 12/17/24 08:12 12/17/24 08:12 D/C Instructions Discharge Diet: No restrictions Call your doctor if you observe: Fever of 101 or Higher DC O2, CPAP, BIPAP Needs Home O2 Discharge instructions: No Please Follow Up With: Fortunato David MD When: Call [phone] for an appointment Meaningful Use Info Meaningful Use Meaningful Use Diagnoses (Choose all that apply): None applicable Ischemic Stroke Statin Dosing Therapy Reference: STATIN DOSE THERAPY REFERENCE: * Patients > 75 years receive moderate or high dose statin therapy. * Patients 75 years or YOUNGER should receive HIGH intensity statin dose unless contraindicated. You will be required to document reason for non-treatment if statin daily dose does not meet guidelines. HIGH DOSE STATIN THERAPY DAILY Atorvastatin > than or = to 40 mg Rosuvastatin > than or = to 20 mg Amlodipine + Atorvastatin > than or = to 2.5/40 mg Ezetimibe + Simvastatin 10/80 mg Simvastatin 80mg Discharge Plan Admission Admit Date/Time: 12/19/24 08:41 Primary Reason for Your Visit: TURP Attending Provider: Fortunato David Primary Care Provider: Reyes Dupree Consulting Providers: Holger Sams Discharge Orders/Prescriptions Prescriptions: New ciprofloxacin HCl [Cipro] 500 mg tablet 500 mg PO BID Qty: 10 0RF Continued atorvastatin 40 mg tablet 40 mg PO DAILY metoprolol succinate 25 mg tablet extended release 24 hr 25 mg PO DAILY hydroxychloroquine 200 mg tablet 200 mg PO BID glipizide 5 mg tablet 10 mg PO TID Jardiance 25 mg tablet 25 mg PO DAILY Held clopidogrel 75 mg tablet 75 mg PO DAILY Hold Instructions: Resume on 01/02/25. Discontinued dutasteride-tamsulosin 0.5-0.4 mg capsule, ER multiphase 24 hr 1 cap PO DAILY No Action famciclovir 500 mg tablet 500 mg PO Q12H Other Ambulatory Orders: 12 Lead EKG (Routine) Timeframe: 20241217 Location: None Selected Ordered By: Dr. Holger Sams Referrals / Follow Up: Fortunato David MD [Med Staff - Active Staff] - Reyes Dupree MD [Primary Care Provider] - Disposition Disposition (needs filled in before D/C Order can be placed): Home, Self Care
--- NOTE | 2024-12-26 07:27 | PCM.HP.STD ---
HPI - General General Date of Admission: 12/19/24 Chief Complaint: BPH with obstruction bladder stones HPI Narrative DAVID BUCK, is a 74 M who presents for resection of the prostate and removal of bladder stones with laser [facility] Medical History (Updated 12/13/24 @ 14:45 by Julia Godinez) History of atrial fibrillation History of heart attack Wears glasses History of steroid therapy Rheumatoid arthritis Arthritis Low iron Prostate disease BPH (benign prostatic hyperplasia) High cholesterol Former smoker History of CHF (congestive heart failure) History of CAD (coronary artery disease) History of edema History of echocardiogram History of stress test Hypertension Cardiology follow-up encounter Home Medications Medication Instructions Recorded Last Taken Type atorvastatin 40 mg tablet 40 mg PO DAILY cholesterol 12/13/24 Unknown History clopidogrel 75 mg tablet 75 mg PO DAILY anti platelet 12/13/24 12/12/24 History Held on 12/19/24. Instructions: Resume on 01/02/25. empagliflozin 25 mg tablet 25 mg PO DAILY diabetes 12/13/24 Unknown History (Jardiance) glipizide 5 mg tablet 10 mg PO TID diabetes 12/13/24 Unknown History hydroxychloroquine 200 mg tablet 200 mg PO BID 12/13/24 Unknown History metoprolol succinate 25 mg 25 mg PO DAILY blood pressure 12/13/24 12/19/24 05:00 History tablet,extended release 24 hr ciprofloxacin HCl 500 mg tablet 500 mg PO BID #10 tabs 12/19/24 Unknown Rx (Cipro) famciclovir 500 mg tablet 500 mg PO Q12H infection 12/19/24 Unknown History Allergy/AdvReac Type Severity Reaction Status Date / Time No Known Allergies Allergy Verified 12/13/24 14:04 Surgical History History of coronary artery stent placement (~2004) History of cardiac catheterization History of colonoscopy History of inguinal hernia repair History of carotid endarterectomy (~03/11/16) History of heart surgery Social History Smoking Status: Former smoker Vital Signs Vital Signs Vital Signs: Weight Weight: 76.657 kg Body Mass Index (BMI) 22.9 Results Lab / Micro Data 12/17/24 08:12 12/17/24 08:12
== END 2024-12-20 16:30 | disposition home or self-care (01) ==
LOC: SDC 12-20 16:57 → PCU 12-20 16:57
PROVIDERS: Student in an Organized Health Care Education/Training Program; Admitting Provider Urology; PCP Family Medicine; Referring Provider Urology; Visit Provider Urology
PROC: 0TBB8ZZ Excision of Bladder, Via Natural or Artificial Opening Endoscopic (ICD-10-PCS; CPT 52601; principal; 2024-12-19 08:50)
DX: N40.1 Benign prostatic hyperplasia with lower urinary tract symptoms (principal); Z87.891 Personal history of nicotine dependence; N21.0 Calculus in bladder; N13.8 Other obstructive and reflux uropathy; E78.00 Pure hypercholesterolemia, unspecified; I25.2 Old myocardial infarction; I10 Essential (primary) hypertension; I25.10 Atherosclerotic heart disease of native coronary artery without angina pectoris; Z79.02 Long term (current) use of antithrombotics/antiplatelets; Z79.899 Other long term (current) drug therapy
CPT/HCPCS: 52601; 52318; 00914; 36415; 80048; 82962; 83036; 85027; 88305; 93005; 96361; 96365; 96366; 99221; G0378; J2405